=== PATIENT | female | born 1985 ===

== ENCOUNTER 2020-07-12 08:38 | Day surgery (SDC) | payer OTHER ==
[~2020-07-12 08:38] MED LIST: ACID REDUCER20 M1 PO; JASMIEL 3 MG-01 EACH PO; ZYRTEC10 M3 PO
[2020-07-12] MEDS ORDERED: TYLENOL ARTHRI650 MG PO (12:25)
[2020-07-12] MEDS ORDERED: MIRALAX17 GM PO (12:25)
[2020-07-12] MEDS ORDERED: ULTRAM50 MG PO (12:25)
== END 2020-07-12 14:45 | disposition home or self-care (01) ==
LOC: CIR.AMB 08:38
PROVIDERS: ATTEND Surgery
DX: K80.10 Calculus of gallbladder with chronic cholecystitis without obstruction (principal); Z20.822 Contact with and (suspected) exposure to COVID-19